=== PATIENT | female | born 1965 | race American Indian/Alaskan Native ===

== ENCOUNTER 2018-11-19 08:18 | Outpatient (CLI) | payer OTHER | END 2018-11-19 19:44 | disposition home or self-care (01) | LOC: MAMMO 08:18 | DX: Z12.31 Encounter for screening mammogram for malignant neoplasm of breast (principal) ==

== ENCOUNTER 2019-09-22 08:50 | Outpatient (CLI) | payer OTHER | END 2019-09-22 19:48 | disposition home or self-care (01) | LOC: MAMMO 08:50 | DX: Z80.3 Family history of malignant neoplasm of breast (principal); N64.52 Nipple discharge; N64.4 Mastodynia | CPT/HCPCS: G0279 ==

== ENCOUNTER 2020-04-06 10:08 | Outpatient (CLI) | payer OTHER | END 2020-04-06 19:50 | disposition home or self-care (01) | LOC: MAMMO 10:08 | PROVIDERS: ATTEND Family Medicine | DX: E07.9 Disorder of thyroid, unspecified (principal); E03.9 Hypothyroidism, unspecified; Z86.39 Personal history of other endocrine, nutritional and metabolic disease; R92.8 Other abnormal and inconclusive findings on diagnostic imaging of breast | CPT/HCPCS: G0279 ==

== ENCOUNTER 2022-10-18 08:47 | Outpatient (CLI) | payer OTHER | END 2022-10-18 18:57 | disposition home or self-care (01) | LOC: MAMMO 08:47 | PROVIDERS: ATTEND Family Medicine | DX: E04.1 Nontoxic single thyroid nodule (principal); Z86.39 Personal history of other endocrine, nutritional and metabolic disease; E03.8 Other specified hypothyroidism; Z12.31 Encounter for screening mammogram for malignant neoplasm of breast ==